=== PATIENT | female | born 1950 | race Caucasian/White ===

== ENCOUNTER → 2018-04-07 | Outpatient (CLI) | payer OTHER ==
[~2018-04-07] MED LIST: CALC-46 PO; CBD oil TP; CHOL30SP PO; CYAN1TAB29 PO; HYDR-3240 PO; MAGN400T7 PO; METH500C3 PO; MSM PO; POTA99TA2 PO; THYR240T PO; TURM500C4 PO; VITA1CAP PO; magnesium PO; vitamin d3 PO
== END | disposition home or self-care (01) ==
LOC: STAR 12:12
PROVIDERS: ATTEND Surgery
DX: Z01.818 Encounter for other preprocedural examination (principal)
CPT/HCPCS: 93005

== ENCOUNTER 2018-04-11 06:12 | Inpatient (IN) | payer OTHER ==
[~2018-04-11] VITALS: Ht 165.1 cm; Wt 105.0 kg
[~2018-04-11 06:12] MED LIST changes: -CALC-46 PO; -HYDR-3240 PO
[2018-04-11] MEDS ORDERED: BUPIVACAINE/PF 0.5% ONE (06:48)
[2018-04-11] MEDS ORDERED: EPINEPHRINE 1 MG/ML, 1ML ONE (06:48)
[2018-04-11] MEDS ORDERED: LACTATED RINGERS 1,000 ML IV SCH (06:52)
[2018-04-11] MEDS ORDERED: LIDOCAINE-MPF 1%, 5ML ONE (06:57)
[2018-04-11] MEDS ORDERED: LIDOCAINE-MPF 1%, 2ML INFIL ONE (07:00)
[2018-04-11] MEDS ORDERED: FENTANYL PF 250 MCG/5ML ONE (07:09)
[2018-04-11] MEDS ORDERED: MIDAZOLAM 1 MG/ML, 2ML ONE (07:09)
[2018-04-11] MEDS ORDERED: GABAPENTIN 300 MG CAPSULE PO ONE (07:30)
[2018-04-11] MEDS ORDERED: ACETAMINOPHEN 500 MG TABLET PO ONE (07:30)
[2018-04-11] MEDS ORDERED: ALBUTEROL SULFATE 2.5 MG/3 ML NPPB PRN (08:00)
[2018-04-11] MEDS ORDERED: ONDANSETRON 2MG/ML, 2ML IVPush PRN (08:00)
[2018-04-11] MEDS ORDERED: METOCLOPRAMIDE 5 MG/ML, 2ML IV PRN (08:00)
[2018-04-11] MEDS ORDERED: LABETALOL 5MG/ML, 20ML IV PRN (08:00)
[2018-04-11] MEDS ORDERED: PROMETHAZINE 25 MG/ML, 1ML IV PRN (08:00)
[2018-04-11] MEDS ORDERED: KETOROLAC 30 MG/1 ML IV PRN (08:00)
[2018-04-11] MEDS ORDERED: MEPERIDINE/PF 25MG/0.5ML IVPush PRN (08:00)
[2018-04-11] MEDS ORDERED: OXYcodone 5 MG/5 ML ORAL.SOL UDC PO PRN (08:00)
[2018-04-11] MEDS ORDERED: hydrALAzine 20 MG/ML, 1ML IV PRN ×2 (08:00→11:30)
[2018-04-11] MEDS ORDERED: BUPIVACAINE/PF 0.5% INFIL ONE (08:07)
[2018-04-11] MEDS ORDERED: EPINEPHRINE 1 MG/ML, 1ML INFIL ONE (08:08)
[2018-04-11 09:13] LABS: 10MIN %DROP IOPTH 53 %; 5MIN %DROP IOPTH 54 %; IOPTH BASELINE 138 pg/mL; SAMPLE 5 %DROP IOPTH 59 %
[2018-04-11] MEDS ORDERED: FENTANYL PF 100 MCG/2ML ONE (09:22)
[2018-04-11] MEDS ORDERED: OXYcodone 5 MG/5 ML ORAL.SOL UDC ONE (09:22)
[2018-04-11] MEDS: FENTANYL PF 100 MCG/2ML IV PRN ×2 (09:30→09:40)
[2018-04-11] MEDS ORDERED: HYDROmorphone 2 MG/ML, 1ML ONE (09:44)
[2018-04-11] MEDS: HYDROmorphone 1 MG/ML, 1ML IV PRN ×3 (09:45→10:07)
[2018-04-11 10:54] VITALS: BP 135/56
[2018-04-11] MEDS ORDERED: ACETAMINOPHEN 325 MG TABLET PO PRN (11:30)
[2018-04-11] MEDS ORDERED: ACETAMINOPHEN 650 MG SUPP PR PRN (11:30)
[2018-04-11 13:19] VITALS: BP 127/56
[2018-04-11] MEDS: HYDROcodone/APAP 5/325 TABLET PO PRN ×3 (14:02→23:47)
[2018-04-11] MEDS ORDERED: ROCURONIUM 10MG/ML,5ML ONE (15:08)
[2018-04-11] MEDS ORDERED: ONDANSETRON 2MG/ML, 2ML ONE (15:08)
[2018-04-11] MEDS ORDERED: SUCCINYLCHOLINE 20 MG/ML, 10ML ONE (15:08)
[2018-04-11] MEDS ORDERED: PROPOFOL 10 MG/ML, 20ML ONE (15:08)
[2018-04-11] MEDS: CALCIUM/VITAMIN D3 250-125 TABLET PO SCH ×2 (15:38→21:37)
[2018-04-11 19:15] VITALS: BP 124/92
[2018-04-11] MEDS: SODIUM CHLORIDE FLUSH 10ML SYR IVF SCH (19:53)
[2018-04-11 23:54] VITALS: BP 132/69
[2018-04-12 03:44] VITALS: BP 134/83
[2018-04-12] MEDS: HYDROcodone/APAP 5/325 TABLET PO PRN ×2 (03:47→08:43)
[2018-04-12] MEDS ORDERED: THYROID 30 MG TABLET PO SCH (06:00)
[2018-04-12 07:23] VITALS: BP 129/78
[2018-04-12] MEDS: CALCIUM/VITAMIN D3 250-125 TABLET PO SCH (08:43)
[2018-04-12] MEDS: SODIUM CHLORIDE FLUSH 10ML SYR IVF SCH (08:45)
[2018-04-12] MEDS ORDERED: MULTIVITS,STRESS FORMULA 1 TABLET PO SCH (09:00)
[2018-04-12] MEDS ORDERED: CHOLECALCIFEROL 1,000 UNIT TABLET PO SCH (09:00)
[2018-04-12] MEDS ORDERED: MAGNESIUM CHLORIDE 64 MG TABLET.DR PO SCH (09:00)
[2018-04-12] MEDS ORDERED: HYDR-3240 PO (10:36)
[2018-04-12] MEDS ORDERED: CALC-46 PO (10:38)
== END 2018-04-12 11:20 | disposition home or self-care (01) | DRG 627 ==
LOC: OUT 06:12 → 4NOR 10:44 → OUT 11:08 → DCLOUNGE 04-12 11:02
PROVIDERS: ADMIT Surgery; ATTEND Surgery
PROC: 0GTR0ZZ Resection of Parathyroid Gland, Open Approach (ICD-10-PCS; principal; 2018-04-11 07:30)
DX: D35.1 Benign neoplasm of parathyroid gland (principal); E21.0 Primary hyperparathyroidism; E83.51 Hypocalcemia; Z91.012 Allergy to eggs; Z88.7 Allergy status to serum and vaccine; Z91.018 Allergy to other foods
CPT/HCPCS: 36415; 82310; 83970; 88305; 88331; J0171; J1170; J2250; J2405; J2704; J3010; J3490; C1760; J0330; J7120

== ENCOUNTER 2019-04-04 05:18 | Day surgery (SDC) | payer OTHER ==
[~2019-04-04] VITALS: Ht 162.6 cm; Wt 98.6 kg
== END 2019-04-04 11:15 | disposition home or self-care (01) ==
LOC: OUT 05:18
PROVIDERS: ATTEND Otolaryngology
DX: D17.79 Benign lipomatous neoplasm of other sites (principal); E03.9 Hypothyroidism, unspecified; Z88.8 Allergy status to other drugs, medicaments and biological substances
CPT/HCPCS: 42106; 88305; 93005; J0690; J1100; J2250; J2405; J2704; J2710; J3010; J7120; J3490